=== PATIENT | female | born 1955 | race Caucasian/White ===

== ENCOUNTER 2016-08-01 14:02 | Day surgery (SDC) | payer MEDICARE, MEDICAID ==
[~2016-08-01] VITALS: Ht 165.1 cm; Wt 72.6 kg
[~2016-08-01 14:02] MED LIST: ALBU2.5V4 INHALATION; AMT25T PO; CYCL10TA9 PO; DOXE150C7 PO; FLUO10CA20 PO; Lactated Ringer's 1,000 ML IV ONE; METH5TAB3 PO; OMEP10CA4 PO; RANI150T11 PO; SUCR1TAB30 PO
[2016-08-01] MEDS ORDERED: Propofol 10,000 mCg/mL 20 mL Inj ONE (14:03)
[2016-08-01 14:19] VITALS: BP 138/90; PULSE 77; RESP 16; O2SAT 95
[2016-08-01] MEDS ORDERED: METH750T3 PO (14:23)
[2016-08-01 15:13] VITALS: BP 110/71; PULSE 65; RESP 14; O2SAT 94
--- NOTE | 2016-08-01 15:24 | PCM.HPANE ---
Patient Data Surgeon Admitting Provider: Attending Provider:Karsten Mock MD Primary Care Physician:Rah Wallace MD Other Provider:[facility] Reason for Visit Epigastric Pain Ht/WT & BMI Body Mass Index Allergies Coded Allergies: Penicillins (Verified Allergy, Severe, Anaphylaxis, 07/31/16) tiotropium (Verified Allergy, Intermediate, TONGUE NUMBNESS, 07/31/16) Past Anesthesia History Anesthesia History: Denies:: Abnormal Airway, Anesthesia Reactions, Difficult Intubation, Fam Anesthesia Reaction, Fam Malignant Hypertherm, Malignant Hyperthermia Medications Reported Medications Methocarbamol 750 Mg [id number] Mg PO TID PRN For Spasm Ref 0 08/01/16 Ranitidine (Zantac)150 Mg [id number] Mg PO DAILY 07/31/16 Omeprazole 10 Mg Capsule.dr10 Mg PO DAILY Ref 0 07/31/16 Methadone 5 Mg Tablet5 Mg PO Q6H 07/31/16 Fluoxetine 10 Mg Enabenu45 Mg PO DAILY Ref 0 07/31/16 Sucralfate (Carafate)1 Gm Tablet1 Gm PO QID Ref 0 07/31/16 Amitriptyline 25 Mg Tab25 Mg PO HS Ref 0 07/31/16 Albuterol Neb Soln 2.5 Mg/3 Ml Vial.neb2.5 Mg INHALATION Q4H PRN For Wheezing Ref 0 07/31/16 Discontinued Reported Medications Doxepin 150 Mg Fqzreow704 Mg PO 07/31/16 Cyclobenzaprine 10 Mg Oorgmb78 Mg PO HS PRN Spasm Ref 0 07/31/16 History History of ENT Problems?: No HEENT History: Denies:: Abnormal Airway Cataracts Difficult Intubation Dysphagia Glaucoma Hearing Problem Sinus Problem TMJ Denture Type: None Teeth Condition: Missing Teeth Hx of Heart Problems?: No Cardiovascular History: Denies:: AICD Abdominal Aortic Aneurism Atrial Fibrillation Cardiac Surgery Chest Pain Congestive Heart Failure Coronary Artery Disease Edema Heart Murmur Hypertension Irregular Heartbeat Pacemaker Peripheral Vascular Rheumatic Fever Thrombophlebitis Valvular Heart Disease Hx of Respiratory Problem?: Yes Respiratory History: Positive for:: COPD Hx Neurologic Problems?: No Hx of GI Problems?: Yes Hx of Problems?: No Hx Musculoskeletal Problems?: Yes Hx Surgeries?: Yes Stop/Bang Risk Assessment Category Category 1A: Patient has history of documented sleep apnea, and HAS NOT received any narcotic, sedative or anesthesia administration during this stay. Category 1B: Patient has history of documented sleep apnea, and HAS received any narcotic , sedative or anesthesia administration during this stay Category 2: Patient has SUSPECTED Obstructive Sleep Apnea, and HAS received any narcotic , sedative or anesthesia administration during this stay. Category 3: Patient has SUSPECTED Obstructive Sleep Apnea and HAS NOT received narcotic, sedative or anesthesia administration during this stay. Category 4: Outpatient in Procedural Areas with known sleep apnea or who screen positive for High Risk via the STOP/BANG questionnaire. Exam Exam General Appearance: Alert, Oriented X3, Cooperative, No Acute Distress HEENT/AIRWAY: MP 2 Lungs: Clear to Auscultation Heart: Exam Unremarkable Plan Impression Patient chart reviewed, patient interviewed and anesthestic plan with risks, benefits, and alternatives discussed, and informed consent obtained. ASA Physical Status: ASA3 Severe Disease Anesthetic Plan: MAC Bene/Risks/Altern/Consents: Yes HP Complete Prior to Induction: Yes Nicola Saenz MD Aug 01, 2016 09:54
--- NOTE | 2016-08-01 15:25 | PCM.ANEP1 ---
Post Anesthesia PACU Phase 1 Assessment Vital Signs Vital Signs Date Time Temp Pulse Resp B/P Pulse Ox O2 Delivery O2 Flow Rate FiO2 08/01/16 15:13 65 14 110/71 94 Room Air 08/01/16 14:19 36.2 77 16 138/90 95 Room Air Anesthetic Administered: MAC Level of Alertness: Sleepy, easy to arouse Pain: No Nausea or Vomiting: No CV Function & Hydration Stable: Yes Airway Device: Lungs: Clear to Auscultation PACU Phase 2 Assessment Patient Instructions Provided: N/A Nicola Saenz MD Aug 01, 2016 15:25
[2016-08-01 15:31] VITALS: BP 140/81; PULSE 68; RESP 16; O2SAT 97
--- NOTE | 2016-08-01 16:01 | ENDO ---
[address] [address] ENDOSCOPY PROCEDURE PATIENT: HOLLAND GOULD : 1955 MR#: [id number] ADMIT: 08/01/2016 JOB ID: [id number] DATE OF SERVICE: 08/01/2016 TYPE OF OPERATION: Esophagogastroduodenoscopy, biopsy. PREOPERATIVE DIAGNOSIS: Gastroesophageal reflux disease and dysphagia. POSTOPERATIVE DIAGNOSIS: Normal upper endoscopy, status post biopsy. ANESTHESIA: Monitored anesthesia care. COMPLICATION: None. BLOOD LOSS: Minimal. DESCRIPTION OF PROCEDURE: After risks and benefits explained to patient, informed consent was obtained. After anesthesia administered, upper endoscope was then inserted in the mouth, intubated the esophagus, stomach, second portion of duodenum. Mucosa carefully examined. After procedure was done, the scope withdrawn, procedure terminated. FINDINGS: Upon inspection of the esophagus, esophagus was normal without masses, ulcers, or lesions. Z-line located at 40 cm from incisors. Upon entering the stomach, the stomach was also normal without masses, ulcers, or lesions. Duodenal bulb, first and second portion were normal. Biopsies taken of the antrum, body, and mid and distal esophagus. IMPRESSION: Normal upper endoscopy, status post biopsy. RECOMMENDATION: Await pathology results. Follow up in GI clinic as needed.
--- NOTE | 2016-08-03 13:14 | PATH ---
SURGICAL PATHOLOGY Attending Physician:Karsten Mock MD CASE STATUS: Signed Out PATIENT NAME: HOLLAND GOULD PID: [id number] : 1955 DATE COLLECTED:08/01/2016 00:00 SPECIMEN: 1: Stomach, Antrum, Biopsy 2: Gastric, Biopsy 3: Esophagus, Biopsy 4: Esophagus, Biopsy CLINICAL HISTORY: 1). ANTRUM BIOPSY 2). GASTRIC BODY BIOPSY 3). DISTAL ESOPHAGUS BIOPSY 4). MID ESOPHAGUS BIOPSY FINAL DIAGNOSIS: 1.ANTRUM BIOPSY: MILD CHRONIC GASTRITIS INVOLVING ANTRAL MUCOSA. Negative for evidence of Helicobacter on H&E stain. Negative for intestinal metaplasia. Negative for dysplasia and malignancy. 2.GASTRIC BODY BIOPSIES: FRAGMENTS OF GASTRIC FUNDIC MUCOSA, NEGATIVE FOR SIGNIFICANT INFLAMMATION. Negative for evidence of Helicobacter on H&E stain. Negative for intestinal metaplasia. Negative for dysplasia and malignancy. 3.DISTAL ESOPHAGUS BIOPSY: SQUAMOUS MUCOSA WITH REACTIVE EPITHELIAL CHANGES AND RARE INTRAEPITHELIAL EOSINOPHILS (CHANGES CONSISTENT WITH THOSE OF CHRONIC REFLUX). No gastric-type epithelium identified. Negative for dysplasia and malignancy. 4.MID ESOPHAGUS BIOPSIES: FRAGMENTS OF SQUAMOUS EPITHELIUM, NEGATIVE FOR INTRAEPITHELIAL EOSINOPHILS. Negative for dysplasia and malignancy. ICD10 K29.70 GROSS DESCRIPTION: The specimen is received in four formalin filled containers labeled with the patient's name. 1). The specimen is sublabeled "antrum" and consists of 2 portions of tissue which aggregate to 0.3 x 0.3 x 0.2 CM. The specimen is entirely submitted in cassette 1A. 2). The specimen is sublabeled "gastric body" and consists of 2 portions of tissue which aggregate to 0.3 x 0.3 x 0.2 CM. The specimen is entirely submitted in cassette 2A. 3). The specimen is sublabeled "distal esophagus" and consists of a 0.4 x 0.2 x 0.2 CM portion of tissue which is entirely submitted in cassettes 3A. 4). The specimen is sublabeled "mid esophagus" and consists of 2 portions of tissue which aggregate to 0.3 x 0.3 x 0.2 CM. The specimen is totally submitted in cassette 4A. 08/02/2016 [facility] MICRO DESCRIPTION: See diagnosis. ICD-9 CODES: CPT CODES: 1: 00737 2: 92174 3: 36254 4: 65610 Electronically Signed Out Guillermo Hughes MD [facility] [address], [place] [address] Technical component performed at [facility], [facility] [address], [place], [address]
== END 2016-08-01 23:59 | disposition home or self-care (01) ==
LOC: END 14:02
PROVIDERS: ATTEND Internal Medicine Gastroenterology
DX: K29.50 Unspecified chronic gastritis without bleeding (principal); K21.9 Gastro-esophageal reflux disease without esophagitis; R10.13 Epigastric pain; R63.4 Abnormal weight loss; R13.14 Dysphagia, pharyngoesophageal phase; F41.8 Other specified anxiety disorders; J44.9 Chronic obstructive pulmonary disease, unspecified; Z68.26 Body mass index [BMI] 26.0-26.9, adult; Z87.891 Personal history of nicotine dependence; Z79.891 Long term (current) use of opiate analgesic
CPT/HCPCS: 43239; 88305; J7120